=== PATIENT | female | born 1980 | race Caucasian/White ===

== ENCOUNTER → 2018-03-15 | Emergency (ER) | payer OTHER ==
[~2018-03-15] VITALS: Ht 157.5 cm; Wt 74.8 kg
[~2018-03-15] MED LIST: CLARINEX-D 21 BOTTLE PO; KETO10TA2 PO; OSEL75CA PO; TUSNEL LIQUID178 ML PO
== END | disposition home or self-care (01) ==
LOC: ER 19:53
DX: S52.591A Other fractures of lower end of right radius, initial encounter for closed fracture (principal); W18.39XA Other fall on same level, initial encounter; M25.532 Pain in left wrist; M25.531 Pain in right wrist; Y93.89 Activity, other specified; Y92.098 Other place in other non-institutional residence as the place of occurrence of the external cause; Y99.8 Other external cause status

== ENCOUNTER 2018-04-17 15:53 | Outpatient (CLI) | payer OTHER | END 2018-04-17 16:05 | disposition home or self-care (01) | LOC: RAD 501 15:53 | DX: M79.641 Pain in right hand (principal) ==

== ENCOUNTER 2019-03-31 08:22 | Emergency (ER) | payer OTHER ==
[~2019-03-31] VITALS: Ht 157.5 cm; Wt 70.8 kg
[2019-03-31] MEDS ORDERED: LOSARTAN-HCTZ1 EAC2 PO (08:39)
== END 2019-03-31 09:58 | disposition home or self-care (01) ==
LOC: ER 08:22
DX: J03.90 Acute tonsillitis, unspecified (principal)

== ENCOUNTER 2023-01-25 10:13 | Outpatient (CLI) | payer OTHER ==
[~2023-01-25 10:13] MED LIST changes: +LOSARTAN-HCTZ1 EAC2 PO
== END 2023-01-25 10:20 | disposition home or self-care (01) ==
LOC: RAD 10:13
PROVIDERS: ATTEND Internal Medicine Cardiovascular Disease
DX: I10 Essential (primary) hypertension (principal); Z12.31 Encounter for screening mammogram for malignant neoplasm of breast; N60.11 Diffuse cystic mastopathy of right breast; J44.9 Chronic obstructive pulmonary disease, unspecified

== ENCOUNTER 2023-01-25 11:11 | Outpatient (CLI) | payer OTHER | END 2023-01-25 11:17 | disposition home or self-care (01) | LOC: NUCLEAR 11:11 | PROVIDERS: ATTEND Internal Medicine Cardiovascular Disease | DX: I10 Essential (primary) hypertension (principal) ==

== ENCOUNTER → 2023-01-25 15:13 | Outpatient (CLI) | payer OTHER | END | disposition home or self-care (01) | LOC: LAB 07:57 | PROVIDERS: ATTEND Internal Medicine Cardiovascular Disease | DX: E03.9 Hypothyroidism, unspecified (principal); E78.2 Mixed hyperlipidemia; E55.9 Vitamin D deficiency, unspecified; E11.9 Type 2 diabetes mellitus without complications; I10 Essential (primary) hypertension ==